=== PATIENT | female | born 1980 | race Caucasian/White ===

== ENCOUNTER 2018-04-29 06:31 | Day surgery (SDC) | payer BC, OTHER ==
[2018-04-29] MEDS ORDERED: LIDOCAINE 4% SOLUTION 50 ML BTL (09:09)
[2018-04-29] MEDS ORDERED: FENTAnyl 50 MCG/ML VIAL (10:10)
[2018-04-29] MEDS ORDERED: MIDAZOLAM 1 MG/ML 2 ML INJ ×3 (10:11)
== END 2018-04-29 12:15 | disposition home or self-care (01) ==
LOC: GIL 06:31
DX: K29.30 Chronic superficial gastritis without bleeding (principal); D12.0 Benign neoplasm of cecum
CPT/HCPCS: 43239; 88305; 88312

== ENCOUNTER 2018-05-23 12:56 | Day surgery (SDC) | payer BC ==
[2018-05-23 14:03] LABS: ADD MAN DIFF? NO
[2018-05-23 14:05] LABS: WHITE BLOOD COUNT 6.9 10^3/ul (4.8-10.8)
[2018-05-23 14:05] LABS: BASOPHIL # 0.1 10^3/ul (0.0-0.1); BASOPHILS % 1.2 % (0.0-2.0); EOSINOPHILS # 0.1 10^3/ul (0.0-0.5); EOSINOPHILS % 1.4 % (0.0-7.0); LYMPHOCYTES # 2.2 10^3/ul (0.8-2.9); LYMPHOCYTES % 31.3 % (15.0-51.0); MEAN CORPUSCULAR HEMOGLOBIN 29.3 pg (29.0-33.0); MEAN CORPUSCULAR HGB CONC 31.7 g/dl (32.0-37.0); MEAN CORPUSCULAR VOLUME 92.6 fl (82.0-101.0); MEAN PLATELET VOLUME 10.5 fl (7.4-10.4); MONOCYTE # 0.5 10^3/ul (0.3-0.9); MONOCYTES % 6.7 % (0.0-11.0); NEUTROPHIL # 4.1 10^3/ul (1.6-7.5); NEUTROPHILS % 59.3 % (39.0-77.0); PLATELET COUNT 293 10^3/UL (140-415); RED BLOOD COUNT 4.43 10^6/ul (4.20-5.40); RED CELL DISTRIBUTION WIDTH 12.7 % (11.5-14.5)
[2018-05-23 14:23] LABS: ALANINE AMINOTRANSFERASE 22 IU/L (13-69); ALBUMIN 4.2 g/dl (3.3-4.9); ALBUMIN/GLOBULIN RATIO 1.35; ALKALINE PHOSPHATASE 92 IU/L (42-121); ANION GAP 7 (5-13); ASPARTATE AMINO TRANSFERASE 20 IU/L (15-46); BILIRUBIN,INDIRECT 0.4 mg/dl (0-1.1); BILIRUBIN,TOTAL 0.4 mg/dl (0.2-1.3); BLOOD UREA NITROGEN 11 mg/dl (7-20); CARBON DIOXIDE 28 mmol/L (21-31); CHLORIDE 105 mmol/L (97-110); CREATININE 0.55 mg/dl (0.44-1.00); Estimated GFR > 60 mL/min (>60); GLUCOSE 99 mg/dl (70-220); POTASSIUM 4.1 mmol/L (3.5-5.1); SODIUM 140 mmol/L (135-144); TOTAL PROTEIN 7.3 g/dl (6.1-8.1)
[2018-05-23 14:29] LABS: INR 0.94; PROTIME 12.7 Sec (11.9-14.9)
[2018-05-23 14:31] LABS: PARTIAL THROMBOPLASTIN TIME 29.4 Sec (23.0-35.0)
[2018-05-23] MEDS ORDERED: DIPHENHYDRAMINE 50 MG INJ IV (16:00)
[2018-05-23] MEDS ORDERED: OXYCODONE/ACETAMINOPHEN (5/325) TAB PO ×2 (16:00)
[2018-05-23] MEDS ORDERED: ONDANSETRON 4 MG INJ IV (16:00)
[2018-05-23] MEDS ORDERED: MEPERIDINE 25 MG INJ IV (16:00)
[2018-05-23] MEDS ORDERED: HYDROmorphONE 1 MG/5 ML IV SYRINGE IV ×3 (16:00)
[2018-05-23] MEDS ORDERED: FENTAnyl 50 MCG/ML VIAL IV ×3 (16:00)
[2018-05-23] MEDS ORDERED: KETOROLAC 30 MG INJ IV (16:00)
[2018-05-23] MEDS ORDERED: PROPOFOL 20 ML (17:54)
[2018-05-23] MEDS ORDERED: CEFAZOLIN 1 GM INJ (17:54)
[2018-05-23] MEDS ORDERED: MIDAZOLAM 1 MG/ML 2 ML INJ (17:54)
[2018-05-23] MEDS ORDERED: FENTAnyl 50 MCG/ML VIAL (17:55)
[2018-05-23] MEDS: LIDOCAINE 2% (MDV) 20 ML INJ (18:33)
[2018-05-23] MEDS: BUPIVACAINE 0.5%/EPI (SDV) 30 ML INJ (18:33)
== END 2018-05-23 19:35 | disposition home or self-care (01) ==
LOC: SDS 12:56
DX: L72.11 Pilar cyst (principal)
CPT/HCPCS: 11422; 80053; 84703; 85025; 85610; 85730; 88304